=== PATIENT | female | born 1975 | race Native Hawaiian/Other Pacific Islander ===

== ENCOUNTER 2023-02-18 22:39 | Emergency (ER) | payer OTHER ==
[~2023-02-18] VITALS: Ht 162.6 cm; Wt 89.4 kg
[2023-02-18] MEDS ORDERED: HYDROcodone-ACET 10/325MG TAB PO ONE (23:45)
[2023-02-19] MEDS ORDERED: ACETAMINOPHEN 500 MG TAB PO ONE (00:10)
[2023-02-19 00:19] VITALS: BP 143/88
== END 2023-02-19 01:32 | disposition home or self-care (01) ==
LOC: ER 22:39
DX: S06.0XAA Concussion with loss of consciousness status unknown, initial encounter (principal); E66.9 Obesity, unspecified; Z68.33 Body mass index [BMI] 33.0-33.9, adult; W22.8XXA Striking against or struck by other objects, initial encounter; Y93.89 Activity, other specified; Y92.89 Other specified places as the place of occurrence of the external cause; Y99.0 Civilian activity done for income or pay
CPT/HCPCS: 70450